=== PATIENT | female | born 1945 | race Caucasian/White ===

== ENCOUNTER 2017-11-25 06:19 | Day surgery (SDC) | payer MEDICARE, BC ==
[2017-11-25] MEDS ORDERED: Sodium Chloride 0.9% 10 ML ONE (06:50)
[2017-11-25] MEDS ORDERED: fentaNYL 100 MCG/2 ML SDV ONE (07:13)
[2017-11-25] MEDS ORDERED: Propofol 200 MG/20 ML SDV ONE (07:13)
[2017-11-25] MEDS ORDERED: Midazolam 1 MG/ML 2 ML SDV ONE (07:13)
[2017-11-25] MEDS ORDERED: Sodium Chloride 0.9% 1,000 ML IV SCH (07:30)
[2017-11-25] MEDS ORDERED: Lidocaine 1% w/EPINEPHrine 50 ML, Sodium Bicarbonate 5 MEQ in Sodium Chloride 0.9% 950 ML INJECT SCH (07:45)
[2017-11-25] MEDS: Sodium Tetradecyl Sulfate 1% 20 MG/2 ML SDV ONE ×2 (08:20→08:24)
[2017-11-25] MEDS: Lidocaine 1% with EPINEPHrine 1:100,000 50 ML MDV ONE ×2 (08:20→08:23)
[2017-11-25 09:32] VITALS: BP 151/85
--- NOTE | 2017-11-25 11:57 | OR ---
DATE OF PROCEDURE: 11/25/2017 PROCEDURES: 1. Radiofrequency ablation of left greater saphenous vein. 2. Left leg sclerotherapy, multiple. 3. Compression, left leg, (70196). COMPLICATION: None. AUTOC[employer] OPERATOR: None. ANESTHESIA: MAC/local. PREOPERATIVE DIAGNOSIS: Venous/varicose vein insufficiency with inflammation and pain. POSTOPERATIVE DIAGNOSIS: Venous/varicose vein insufficiency with inflammation and pain. RISKS: Risks, benefits, alternatives and limitations including, but not limited to infection, bleeding, and DVT formation were explained to the patient, and they wished to proceed. PROCEDURE IN DETAIL: The patient was placed in the supine position. The right GSV was investigated first. This was found to not have any evidence of reflux at this time. Therefore, no intervention was performed. The left GSV was then accessed at the level of the ankle using a 35,000th wire through a 21- gauge needle. This was then exchanged for a 7-Greek sheath. The probe was accessed and advanced to the mid calf, and due to tortuosity, this was not able to be advanced any further. Tumescent fluid was injected in a 1-cm jacket around this. This was verified a second and a third time. The probe was deployed x2 proximally and distally and x1 in all other segments. The sheath and device were then removed. Direct pressure was held for 10 minutes. Dermabond was applied. Sclerotherapy was performed of 6 on the left leg using 0.33% sodium tetradecyl. It was always drawn back to ensure intravascular injection only. No more than 2 mL was injected at any time. Two-stage two-layer compression wrapping was performed using [id number] fashion with 20 mm gradient pressure. The patient tolerated the procedure well. Red Rush MD /[id number]
== END 2017-11-25 09:40 | disposition home or self-care (01) ==
LOC: JP.SDS 06:19
PROVIDERS: ATTEND Surgery
DX: I83.812 Varicose veins of left lower extremity with pain (principal); I83.12 Varicose veins of left lower extremity with inflammation; I10 Essential (primary) hypertension; Z88.0 Allergy status to penicillin; Z91.041 Radiographic dye allergy status
CPT/HCPCS: 36471; 36475; 76998; J1642; J2250; J2704; J3010; J7040; J7050; J3490

== ENCOUNTER 2023-08-18 06:46 | Day surgery (SDC) | payer MEDICARE ==
[2023-08-18] MEDS ORDERED: Lactated Ringers 1,000 ML IV SCH (08:00)
[2023-08-18] MEDS ORDERED: fentaNYL 100 MCG/2 ML SDV ONE (08:06)
[2023-08-18] MEDS ORDERED: Propofol 200 MG/20 ML SDV ONE (08:06)
[2023-08-18] MEDS ORDERED: Glycopyrrolate 0.2 MG/ML 2 ML SDV ONE (08:47)
[2023-08-18 09:53] VITALS: BP 131/86; PULSE 68
== END 2023-08-18 10:10 | disposition home or self-care (01) ==
LOC: JP.SDS 06:46
PROVIDERS: ATTEND Student in an Organized Health Care Education/Training Program
DX: Z12.11 Encounter for screening for malignant neoplasm of colon (principal); K57.30 Diverticulosis of large intestine without perforation or abscess without bleeding; K64.8 Other hemorrhoids
CPT/HCPCS: G0121; J2704; J3010; J3490; J7120